=== PATIENT | male | born 1975 | race Hispanic/Latino ===

== ENCOUNTER 2022-01-12 20:08 | Emergency (ER) | payer BC, OTHER, SELFPAY ==
[2022-01-12] MEDS ORDERED: HYDROcodone/Acetaminophen 10/325 mg Tablet ONE (21:00)
[2022-01-12] MEDS ORDERED: methylPREDNISolone Sod Succ/PF 125 MG/2 ML VIAL ONE (21:46)
== END 2022-01-12 22:03 | disposition home or self-care (01) ==
LOC: ERS 20:08
DX: S93.601A Unspecified sprain of right foot, initial encounter (principal); M25.461 Effusion, right knee; M10.9 Gout, unspecified; X58.XXXA Exposure to other specified factors, initial encounter; Y93.39 Activity, other involving climbing, rappelling and jumping off
CPT/HCPCS: 96372; J2930